=== PATIENT | female | born 1985 | race Caucasian/White ===

== ENCOUNTER 2017-01-22 13:09 | Emergency (ER) | payer OTHER ==
[~2017-01-22 13:09] MED LIST: ABILIFY5 MG PO; FIORICET TAB1 EA PO; LAMICTAL PO; PAXIL10 MG PO; PAXIL20 MG PO; PROZAC20 MG PO; WELLBUTRIN SR150 MG PO; ZYPREXA ZYDIS5 MG PO
[2017-01-22 14:09] LABS: HEMOGLOBIN 14.9 gm/dl (12.3-15.3); RED BLOOD COUNT 5.04 M/UL (4.00-5.10); WHITE BLOOD COUNT 8.6 K/UL (4.5-11.0)
[2017-01-22 14:26] LABS: BUN/CREATININE RATIO 12 (0-10)
== END 2017-01-22 17:32 | disposition home or self-care (01) ==
LOC: ER1 13:09
PROVIDERS: Family Medicine
DX: R10.31 Right lower quadrant pain (principal); R11.10 Vomiting, unspecified; Z90.5 Acquired absence of kidney
CPT/HCPCS: 36415; 80053; 81001; 83690; 84703; 85025; 87086; 96361; 96374; 99284; J2405